=== PATIENT | female | born 1990 | race Caucasian/White ===

== ENCOUNTER 2017-12-09 04:59 | Inpatient (IN) ==
[2017-12-09] MEDS ORDERED: Lactated Ringers-OB Dept 2,000 ML ONE (05:02)
[2017-12-09] MEDS ORDERED: ePHEDrine Inj 5 MG in Normal Saline Flush 1 ML IVP PRN (05:23)
[2017-12-09] MEDS ORDERED: CefOXitin Inj 2 GM in Sodium Chloride 0.9% 100 ML IV PRN (05:23)
[2017-12-09] MEDS ORDERED: CITRIC ACID/SODIUM CITRATE 30 ML CUP PO PRN (05:23)
[2017-12-09] MEDS ORDERED: OXYTOCIN 10 UNIT/1 ML IM PRN (05:23)
[2017-12-09] MEDS ORDERED: Nalbuphine Inj 20 MG/ML Ampule IVP PRN ×2 (05:23→22:18)
[2017-12-09] MEDS ORDERED: Phenylephrine Inj 50 MCG in Normal Saline Flush 0.5 ML IVP PRN (05:23)
[2017-12-09] MEDS ORDERED: diphenhydrAMINE 50 MG/1 ML VIAL IVP PRN ×2 (05:23→22:18)
[2017-12-09] MEDS ORDERED: NORMAL SALINE 10 ML SYRINGE FLUSH IVP PRN ×2 (05:23→22:18)
[2017-12-09] MEDS ORDERED: Metoclopramide Inj 10 MG/2 ML VIAL IV PRN (05:23)
[2017-12-09] MEDS ORDERED: METHYLERGONOVINE MALEATE 0.2 MG/1 ML VIAL IM PRN (05:23)
[2017-12-09] MEDS ORDERED: NALOXONE 0.4 MG/1 ML VIAL IVP PRN (05:23)
[2017-12-09] MEDS ORDERED: fentaNYL Inj 100 MCG/2 ML VIAL IV PRN (05:23)
[2017-12-09] MEDS ORDERED: LIDOCAINE W/ SODIUM BICARB 0.5 ML SYR SUBD PRN (05:23)
[2017-12-09] MEDS ORDERED: MISOPROSTOL 200 MCG TABLET RECTAL PRN (05:23)
[2017-12-09] MEDS ORDERED: TERBUTALINE SULFATE 1 MG/1 ML SDV SUBCUT PRN (05:23)
[2017-12-09] MEDS ORDERED: BUTORPHANOL TARTRATE 2 MG/1 ML VIAL IVP PRN (05:23)
[2017-12-09] MEDS ORDERED: Lidocaine 1% 10 MG/ML - 20 ML VIAL SUBCUT PRN (05:23)
[2017-12-09] MEDS ORDERED: LIDOCAINE HCL 2 % 10 ML JELLY URO-JECT TOPICAL PRN ×2 (05:23→22:18)
[2017-12-09] MEDS ORDERED: Famotidine Inj 20 MG in Normal Saline Flush 10 ML IVP PRN ×4 (05:23)
[2017-12-09] MEDS ORDERED: Naloxone Inj 0.01 MG in Normal Saline Flush 1 ML IVP PRN (05:23)
[2017-12-09] MEDS ORDERED: CALCIUM CARBONATE 500 MG (TUMS) CHEWABLE TABLET PO PRN ×2 (05:23→22:18)
[2017-12-09] MEDS ORDERED: Carboprost Inj 250 MCG/ML AMP IM PRN (05:23)
[2017-12-09] MEDS ORDERED: ONDANSETRON 4 MG/2 ML VIAL IVP PRN ×2 (05:23→22:18)
[2017-12-09] MEDS ORDERED: Oxytocin 20 Units + LR 20 UNIT/1,000 ML BAG IV SCH ×3 (05:30→22:18)
[2017-12-09 05:42] LABS: Hematocrit [HCT] 30.8 % (37.0-47.0); Hemoglobin [HGB] 9.6 g/dL (12.0-16.0); MEAN CORPUSCULAR HEMOGLOBIN 20.6 PG (27-31); MEAN CORPUSCULAR HGB CONC 31.2 g/dL (33-37); MEAN CORPUSCULAR VOLUME 66.1 FL (81-99); MEAN PLATELET VOLUME 10.2 FL (7.4-12.2); RED BLOOD COUNT 4.66 10^6/uL (4.20-5.40)
[2017-12-09] MEDS: Lactated Ringers-OB Dept 1,000 ML PRIMARY IV SCH ×4 (05:47→16:12)
--- NOTE | 2017-12-09 09:08 | OB.PROGRES ---
Date and Time of Service: 12/09/17 @ 0850 Interval History: Pt is a 27 yo at 39 0/7 weeks by first trimester u/s who presented to labor and delivery for induction at term. She reports that she has had some contractions, but nothing regular. Denies vag bleeding or gushes of fluid. Baby has been moving around well. Objective - Cervical Exam Cervical Exam: 2/60/-2/soft and anterior [place]: every 2-3 minutes; palpating moderate. Heart Rate: 130-135; moderate variability. No decels noted. Heart Rate Interpretation Category: Category I - Labs CBC and BMP: 12/09/17 05:33 - Vital Signs Last Taken Vital Signs: Vital Signs - Last Taken Temperature 98.2 F 12/09/17 07:00 Pulse Rate 75 12/09/17 08:00 Respiratory Rate 18 12/09/17 07:00 Blood Pressure 124/71 12/09/17 08:00 Pulse Ox 100 12/09/17 08:00 Assessment and Plan - Patient Problems (1) Term Current Visit: Yes Status: Acute Code(s): Z34.80 - Encounter for supervision of other normal , unspecified trimester - Assessment / Plan Additional Assessment/Plan Details: -GBS negative. -comfortable currently after 1 dose of fentanyl. Planning on getting an epidural at some point. -will AROM as soon as she has progressed further. -expect normal vaginal delivery.
[2017-12-09] MEDS ORDERED: Fent/Bupiv 2mcg/0.0625% Epid 250 ML ONE (10:03)
--- NOTE | 2017-12-09 10:14 | CRNA.PROCE ---
Central Neuraxis Block Placemt - - Safety Measures: Time Out Taken, Site Verified - - Type of Block: Epidural Moniters Used During Block: SPO2, NIBP Skin Prep Used: Betadine Draped: Yes Skin Infiltration - Enter Amount Used in Comment Field: 1% Xylocaine (mL): Yes ( wheal) Introducer User: 18 Gauge Pastor Local Anesthetic - Enter Amount Used in Comment Field: 1.5 % Xylocaine with Epinephrine 1:200,000 (mL): Yes (5ml negative) Number of Centimeters Catheter Threaded: 4 Bioclusive Dressing Applied: Yes - - Additional Details: Requests epidural analgesia for MINA. Reviewed risks and benefits and she wishes to proceed. Sitting, landmarks ID'd, betadine prep, drape, skin wheal at L 3-4. #18 Hustead passed with crisp ERIN to saline first pass. Cath easily 4cm. Test dose neg. and catheter secured. PCEA started. Anesthesia Time - Other Weight: 105.687 kg Height: 5 ft 5 in Body Mass Index (BMI): 38.7
--- NOTE | 2017-12-09 10:15 | CRNA.PROGR ---
<EVA LUNDBERG - Last Filed: 12/10/17 08:39> Anesthesia Time - Procedure/Recovery Time Anesthesia : Time Out: 21:55 <COURT SHAIKH - Last Filed: 12/14/17 13:36> Anesthesia Time - - Start date: 12/09/17 End date: 12/14/17 - Procedure/Recovery Time Anesthesia : Time In: 09:45 - Other Weight: 105.687 kg Height: 5 ft 5 in Body Mass Index (BMI): 38.7 Physical Status: P2 Anesthesia Type: Epidural Obstetrics: Planned vaginal delivery w/ neuraxial labor anesthesia/analog
[2017-12-09] MEDS ORDERED: BUPIVACAINE SPINAL 7.5 MG/1 ML - 2 ML IV ONE (12:39)
--- NOTE | 2017-12-09 17:31 | OB.PROGRES ---
Date and Time of Service: 12/09/17 @ 1730 Interval History: Betty is currently comfortable with her epidural/spinal. Able to move her legs much better now. Was complaining of some rectal pressure, but cervix is unchanged from 2 hours ago. Objective - Cervical Exam Cervical Exam: 5/70/-2/soft/anterior [place]: every 2 minutes now, palpating moderate to hard Heart Rate: 135, moderate variability, some early decelerations noted. - Labs CBC and BMP: 12/09/17 05:33 - Vital Signs Last Taken Vital Signs: Vital Signs - Last Taken Temperature 98.2 F 12/09/17 14:00 Pulse Rate 74 12/09/17 16:00 Respiratory Rate 18 12/09/17 15:00 Blood Pressure 99/54 12/09/17 16:00 Pulse Ox 100 12/09/17 16:00 Assessment and Plan - Patient Problems (1) Term Current Visit: Yes Status: Acute Code(s): Z34.80 - Encounter for supervision of other normal , unspecified trimester - Assessment / Plan Additional Assessment/Plan Details: -GBS negative. -cervix is unchanged after 2 hours, but as noted above, she has just finally gotten into a good pattern. Also having some early decels now. IUPC in place and MVUs are running around 200. Continue to closely monitor. -comfortable with her epidural. -expectant management.
[2017-12-09] MEDS ORDERED: LANOLIN HPA 40 GM TUBE TOPICAL PRN (22:18)
[2017-12-09] MEDS ORDERED: Ondansetron ODT Tab 4 MG TAB PO PRN (22:18)
[2017-12-09] MEDS ORDERED: GLYCERIN/WITCH HAZEL 1 BOX TOPICAL PRN (22:18)
[2017-12-09] MEDS ORDERED: diphenhydrAMINE 25 MG CAPSULE PO PRN (22:18)
[2017-12-09] MEDS ORDERED: ACETAMINOPHEN 325 MG TABLET PO PRN (22:18)
[2017-12-09] MEDS ORDERED: DIPH,PERTUSS,TET(ADACEL) VAC/PF 0.5 ML (Tdap) IM ONE (22:18)
[2017-12-09] MEDS ORDERED: BENZOCAINE/MENTHOL SPRAY 56 GM BOTTLE TOPICAL PRN (22:18)
[2017-12-09] MEDS ORDERED: Lactated Ringers 1,000 ML PRIMARY IV ONE (23:06)
[2017-12-09] MEDS: IBUPROFEN 800 MG TABLET PO PRN (23:21)
[2017-12-10] MEDS ORDERED: Lactated Ringers-OB Dept 1,000 ML ONE (00:40)
[2017-12-10] MEDS ORDERED: Sodium Chloride 0.9% vial 10 ML ONE (00:40)
[2017-12-10] MEDS: HYDROcodone-APAP 5 MG -325 MG TABLET PO PRN ×4 (05:01→19:59)
[2017-12-10 05:36] LABS: Hematocrit [HCT] 28.8 % (37.0-47.0); Hemoglobin [HGB] 8.6 g/dL (12.0-16.0); MEAN CORPUSCULAR HEMOGLOBIN 20.1 PG (27-31); MEAN CORPUSCULAR HGB CONC 29.9 g/dL (33-37); MEAN CORPUSCULAR VOLUME 67.3 FL (81-99); RED BLOOD COUNT 4.28 10^6/uL (4.20-5.40)
[2017-12-10] MEDS: Lactated Ringers-OB Dept 1,000 ML PRIMARY IV SCH (06:51)
--- NOTE | 2017-12-10 08:43 | CRNA.PROGR ---
Anesthesia Note - Progress Notes Anesthesia Progress Note: Post Labor Epidural Note Pt has been up and in the shower, she is in chair with . She denies any residual problem with epidural. She states that the epidural worked well for her. Current VS stable. Vital Signs - Last Taken Temperature 98.9 F 12/09/17 23:16 Pulse Rate 99 12/09/17 22:35 Respiratory Rate 20 12/09/17 22:35 Blood Pressure 106/55 12/09/17 23:16 Pulse Ox 100 12/09/17 21:46
[2017-12-10] MEDS: IBUPROFEN 800 MG TABLET PO PRN ×2 (09:10→19:58)
[2017-12-10] MEDS: DOCUSATE 100 MG CAPSULE PO SCH ×2 (09:11→22:00)
[2017-12-10] MEDS: Prenatal Multivitamin Tab 1 TAB TAB PO SCH (09:49)
[2017-12-10] MEDS: PANTOPRAZOLE SODIUM 40 MG PO SCH (15:30)
[2017-12-10] MEDS: RANITIDINE HCL 150 MG PO PRN (15:30)
[2017-12-10 20:05] VITALS: O2SAT 99
--- NOTE | 2017-12-10 21:16 | OB.DEL.SUM ---
Delivery Note Delivery Summary: Pt is a 27 yo at 39 0/7 weeks who presented this morning for an elective induction of labor at term. Her monroe score was 3 upon admission with a cervical exam of 1-2/50/-2. She progressed slowly to 3 cm/70/-2. An epidural was placed for analgesia. She underwent amniotomy with return of clear fluid at approximately 1400 and her cervix was 5 cm at that time. She labored for an additional 2 hours with pitocin augmentation with no cervical change. An IUPC was placed to more closely monitor her contractions. She was moved to multiple different positions over the next several hours and finally achieved complete cervical dilation at approximately 2035. She pushed for about 20 minutes to the delivery of a viable male , over an intact perineum. The baby's anterior shoulder did catch a bit on mom's pubic bone, however this did release with gentle downward traction of the baby's head in a linear fashion. After delivery , the baby's nose and mouth were suctioned with the bulb suction and the cord was doubly clamped by myself after 40 seconds. The cord was cut by the father of the baby. Baby was handed to the waiting nurse per mom's request. Cord blood and cord gases were obtained for analysis. The placenta delivered spontaneously , intact, with a 3 vessel cord a short time later. 20 mU of pitocin were infused to assure hemostasis. The vagina and perineum were examined and no lacerations were noted. Apgars were 7 at 1 minute and 9 at 5 minutes. Baby weighed 7#15 oz. EBL as noted in nurse's note. Both mom and baby tolerated delivery well and are in stable condition at this time. - Patient Problems (1) Term Current Visit: Yes Status: Acute Code(s): Z34.80 - Encounter for supervision of other normal , unspecified trimester
[2017-12-11] MEDS: HYDROcodone-APAP 5 MG -325 MG TABLET PO PRN ×2 (01:25→14:42)
[2017-12-11] MEDS: IBUPROFEN 800 MG TABLET PO PRN ×2 (06:30→14:42)
[2017-12-11] MEDS: DOCUSATE 100 MG CAPSULE PO SCH (09:52)
[2017-12-11] MEDS: Prenatal Multivitamin Tab 1 TAB TAB PO SCH (09:52)
[2017-12-11] MEDS: PANTOPRAZOLE SODIUM 40 MG PO SCH (09:53)
[2017-12-11] MEDS: RANITIDINE HCL 150 MG PO PRN (09:53)
[2017-12-11 10:00] VITALS: BP 115/54; RESP 16; TEMP 97.7
--- NOTE | 2017-12-18 13:24 | DCSUMMARY ---
Hospitalization Summary Admit Date: 12/09/17 Discharge Date: 12/11/17 Primary Diagnosis:: Term IUP Delivery Type: Vaginal Hospital Course: Pt was admitted for induction of labor at term. For details of her delivery, please see delivery summary located elsewhere in the chart. / Postop Complications: Pt had a normal post- course with no complications. Bottle feeding. [place] Complications: Baby had a normal course with no complications. Exam - Vitals Vital Signs: Vital Signs Temperature 97.7 F Temperature Source Oral Pulse Rate [Pulse Oximeter] 63 Pulse Rate 99 Respiratory Rate 16 Blood Pressure [Left Arm] 115/54 Blood Pressure [Right Arm] 124/76 Blood Pressure 106/55 Pulse Ox 99 Oxygen Delivery Method Room Air Height 5 ft 5 in Weight 233 lb - General General Appearance: No Acute Distress, Cooperative - Respiratory Respiratory Exam: POSITIVE: Clear to Auscultation - Bilaterally, Breathing Non Labored - Cardiovascular Cardiovascular Exam: POSITIVE: RRR, No Murmur - GI/Abdominal GI/Abdominal Exam: POSITIVE: Normal Bowel Sounds, Non Tender, Non Distended, Soft - Extremities Extremities Exam: POSITIVE: Normal Inspection - Neurological Neurological Exam: POSITIVE: Alert, Oriented x 3 - Psychiatric Psychiatric Exam: POSITIVE: Normal Mood, Flat Affect - Integumentary Integumentary Exam: POSITIVE: Normal Color, Warm, Dry Patient Problems - Patient Problem List (1) Term Status: Acute Code(s): Z34.80 - Encounter for supervision of other normal , unspecified trimester Category: Medical
== END 2017-12-11 14:55 | disposition home or self-care (01) | DRG 775 ==
LOC: OBIP 05:05
PROVIDERS: ADMIT Family Medicine; ATTEND Family Medicine